=== PATIENT | male | born 1930 | race African-American/Black ===

== ENCOUNTER → 2016-12-15 | Outpatient (CLI) | payer OTHER, BC ==
[~2016-12-15] MED LIST: AMBEREN; AMBIEN 10 MG TA10 MG PO; AMLODIPINE BESYL5 MG PO; ANALGESIC325 MG PO; ASPIRIN EC325 M1; ASPIRIN325 PO; ATACAND HCT 321 EACH PO; B12INJ PO; BYSTOLIC 5 MG5 M1; BYSTOLIC 5 MG5 M1 PO; CELEBREX 200 M200 MG PO; DEPAKOTE ER500 MG PO; DIABETA 2.5MG2.5 MG PO; EFFEXOR100 MG; EFFEXOR100 MG PO; FINASTERIDE5 MG; FISHOIL; FISHOIL PO; FLOMAX; FLOMAX PO; GLUMETZA1000; LANTUS; LASIX 20 MG TAB20 MG PO; LISINOPRIL5 MG; LISINOPRIL5 MG PO; LORAZEPAM 0.50.5 MG PO; MULTIVITAMINS PO; NAMENDA 10 MG T10 MG PO; PENTOPAK400 MG; PENTOXIFYLLINE400 MG PO; PERCOCET 5-3251 EACH PO; SEROQUEL XR200 MG PO; SIMVASTATIN40 MG; SIMVASTATIN40 MG PO; SINEMET 25-1001 EAC1
== END ==
LOC: SPEECH 13:14 → RAD 13:14
DX: R13.19 Other dysphagia (principal)